=== PATIENT | male | born 1960 | race Caucasian/White ===

== ENCOUNTER 2024-02-18 14:19 | Emergency (ER) | payer OTHER, SELFPAY ==
[2024-02-18 14:27] VITALS: BP 140/88
[2024-02-18 14:51] LABS: % Basophils 0.9 % (0-2); % Eosinophils 3.9 % (0-6); % Immature Granulocytes 0.3 % (0-0.5); % Lymphocytes 29.1 % (20.5-51.1); % Monocytes 8.5 % (1.7-9.3); % Neutrophils 57.3 % (42.2-75.2); Absolute Basophils 0.1 10^3/uL (0-0.2); Absolute Eosinophils 0.3 10^3/uL (0-0.7); Absolute Lymphocytes 1.9 10^3/uL (1.2-3.4); Absolute Monocytes 0.6 10^3/uL (0.1-0.6); Absolute Neutrophils 3.7 10^3/uL (1.4-6.5); Hemoglobin 15.7 g/dL (13.0-18.0); Mean Corp Hgb Conc. 34.1 g/dL (33.0-37.0); Mean Corpuscular Hgb 32.2 pg (27.0-31.0); Mean Corpuscular Volume 94.3 fL (80.0-94.0); Mean Platelet Volume 10.1 fL (7.4-10.4); Nucleated Red Blood Cells % 0 % (-); Platelet Count 190 10^3/uL (130-400); Red Blood Cell Count 4.88 10^6/uL (4.70-6.10); Red Cell Dist. Width 14.2 % (11.5-14.5); White Blood Cell Count 6.5 10^3/uL (4.8-10.8)
[2024-02-18 15:05] LABS: ALT (SGPT) 37 U/L (0-50); AST (SGOT) 35 U/L (17-59); Alkaline Phosphatase 98 U/L (38-126); Blood Urea Nitrogen 13 mg/dl (9-20); Carbon Dioxide 29 mmol/L (22-30); Chloride 102 mmol/L (98-107); Glucose 110 mg/dl (70-99); Potassium 4.8 mmol/L (3.5-5.1); Sodium 139 mmol/L (135-145); Total Bilirubin 0.6 mg/dl (0.2-1.3); Total Protein 8.1 g/dl (6.3-8.2); eGFR 56.83
[2024-02-18 16:55] VITALS: BP 161/77
[2024-02-18 16:56] VITALS: BP 160/84; BP 161/77; BP 169/84; PULSE 71; PULSE 74; PULSE 80
[2024-02-18 16:57] VITALS: BP 160/84
[2024-02-18 17:00] VITALS: BP 169/84
--- NOTE | 2024-02-18 17:00 | ED.GENMED ---
History of Present Illness
General
Chief Complaint: Chest Pain
Source: patient and spouse
Time Seen by Provider: 02/18/24 16:47
Travel History
Have you had any contact with someone who has COVID-19?: No
Do you have any symptoms of coronavirus? Fever > 100 degrees, chills, cough, shortness of breath, sore throat, loss of taste or smell, muscle aches, or headache?: No
History of Present Illness
History of Present Illness:
63-year-old male with past medical history of hypertension, hyperlipidemia, CAD with cardiac stent placed in 2010 presenting to the emergency department for evaluation of acute onset of vertigo that started while watching TV, patient got diaphoretic
and shortly after developed some chest discomfort. He reports that the chest discomfort fully resolved but he still has been having intermittent episodes of vertigo. At time of my exam patient notes that he is fully asymptomatic and without any
other concerns. Denies any headache, visual disturbances, focal weakness or numbness, current chest or shortness of breath, palpitations, diaphoresis, exertional dyspnea orthopnea. Patient notes 2 weeks ago he did have an acute GI illness with
nausea vomiting and diarrhea which all resolved. No known sick contacts, recent travel or recent antibiotics. Patient reports he is readily compliant with his aspirin regimen.
Past History
Past History
ED Past Medical History: CAD and HTN; Negative IDDM or NIDDM
ED Past Surgical History: None
Social History
Tobacco: Non-smoker
Alcohol: Occasional
Drug: None
Personal:
Living: with family
Employment: Employed
Family History
Family History: CAD
Review of Systems
Review of Systems
All Other Systems: ROS reviewed and negative except as documented in HPI and ROS
Phy Exam
Physical Exam
Physical Exam:
GENERAL: Alert , in no apparent distress
EYE: conjunctiva clear
NECK: Supple, no significant adenopathy.
ENT: o/p clr, mmm. TMs normal bilateral
CARDIAC: Regular rate and rhythm, no murmur
LUNGS: Clear breath sounds bilaterally, no acute respiratory distress, no wheezes/rales/rhonchi
NEUROLOGICAL: Alert and oriented x 3, ambulates with gait
SKIN: Warm and dry, skin intact.
MUSCULOSKELETAL: well perfused.
PSYCH: Normal and appropriate interaction.
Scores
Heart Failure Risk
Heart Failure Risk Score: Not Applicable
Heart Score for Chest Pain Patients
STEMI patient?: No
History: Slightly or Non-Suspicious
ECG: Normal
Age: >45 - <65 years
Risk Factors: >/= 3 Risk Factors or History of CAD
Troponin: </= Normal Limit
Heart Score for Chest Pain Patients: 3
Heart Score Risk: 2.5% MACE over next 6 weeks
Withdrawal Assessment of Alcohol
Withdrawal Assessment Completed?: Not applicable
Course
Orders/Labs/Results
Orders:
Orders
02/18/24 14:22
ECG [Electrocardiogram (*1)] Urgent
Reason for Study: Chest Pain
EKG- Treatment ONCE
02/18/24 14:40
Complete Blood Count/With Diff Urgent
Comprehensive Metabolic Panel Urgent
02/18/24 16:56
Electrocardiogram (*1) Urgent
Reason for Study: Chest Pain
EKG- Treatment ONCE
Orthostatic VS- Treatment ONCE
02/18/24 16:59
0.9% Sodium Chloride 1000 ml [Nss] 1,000 ml IV BOLUS
02/18/24 18:44
Troponin I Urgent
Troponin I Urgent
Abnormal Lab Results
02/18/24
14:40
MCV 94.3 H fL
(80.0-94.0)
MCH 32.2 H pg
(27.0-31.0)
Creatinine 1.4 H mg/dL
(0.7-1.3)
Glucose 110 H mg/dl
(70-99)
02/18/24 14:40
02/18/24 14:40
Vital Signs
Initial and Last Documented VS:
Initial Vital Signs
Temp Pulse Resp BP Pulse Ox
98.6 F 71 18 140/88 98
02/18/24 14:27 02/18/24 14:27 02/18/24 14:27 02/18/24 14:27 02/18/24 14:27
Last Documented Vital Signs
Temp Pulse Resp BP Pulse Ox
98.6 F 78 14 169/84 95
02/18/24 14:27 02/18/24 19:15 02/18/24 19:15 02/18/24 17:00 02/18/24 19:15
MDM/Problems Addressed
Differential Diagnosis Includes:
BPPV, labyrinthitis, electrolyte disturbance, less concern for ACS
MDM/Problems Addressed:
63-year-old male presenting to the emergency department for evaluation of acute onset of vertiginous symptoms. Patient also had some chest pain with this however this is fully resolved and was fleeting in nature. I suspect labyrinthitis to be most
likely given recent viral illness. Patient's labs including troponin are largely unremarkable although he does have a noted mild WILMER. Will treat with 1 L of IV fluids. Will check orthostatics and repeat troponin as well as EKG. If this remains
unremarkable will ensure close follow-up with cardiology. Antivert prescription to be provided. Anticipate discharge home.
Chronic conditions affecting care: CAD
*Pulse Oximetry
Patient hypoxic: no
*EKG
Interpreted by ED Provider?: Yes
Comparison EKG: no changes
Heart Rate: 73
Rate: normal
Rhythm: sinus
[place]: normal axis
Ischemia: no ischemia
*Critical Care Note
Total Time (30-74mins, 75-104mins- exclusive of procedures): Not Applicable
Patient Management
Escalation/DeEscalation of care consider admission/obs:
Patient remains symptom-free in ER without any interventions. He had a repeat troponin which was negative. Again I do not have suspicion for ACS presentation and suspect this to be more likely a labyrinthitis caused by recent viral illness.
Prescription for vertigo sent to pharmacy. I did notify the chest pain hotline given patient's known history of coronary artery disease. Aware of return precautions but otherwise stable for discharge home.
ED Attending Note
-
Portions of this chart may have been created with voice recognition software.� Occasional wrong word or��sound alike� substitutions may have occurred due to the inherent limitations of voice recognition software.
Discharge Plan
Departure
Patient Disposition: Home (Routine Discharge)
Date of Disposition: 02/18/24
Time of Disposition: 19:20
Patient with high blood pressure during this ER visit?: Yes
Discharge Problem:
Vertigo, Chest pain
Instructions: Vertigo (a Type of Dizziness) (DC), Chest Pain DCA Follow Up
Prescriptions:
New
meclizine [Antivert] 50 mg tablet
50 mg PO BID PRN (Reason: dizziness) Qty: 10 0RF
No Action
multivitamin [Daily Multiple] 1 EACH tablet
1 ea PO DAILY
nitroglycerin 0.4 MG tablet, sublingual
0.4 mg sublingual [id number] PRN (Reason: chest pain)
omeprazole 20 MG capsule,delayed release(DR/EC)
20 mg PO DAILY
finasteride [Propecia] 1 MG tablet
1 mg PO DAILY
coenzyme Q10 [Co Q-10] 100 MG capsule
100 mg PO DAILY
rosuvastatin 20 MG tablet
1 tab PO DAILY
Patient Comments:
Pt states he was taking this at night but changed to AM w/ no change in cholesteral labs (noted 3..13)
nebivolol [Bystolic] 5 MG tablet
5 mg PO DAILY
prasugrel 10 MG tablet
10 mg PO Daily
Diovan
80 mg PO DAILY
Referrals:
UNKNOWN - PT DOES,NOT KNOW [Unknown Provider] -
Interventions
Interventions:
*Risk Screen - Suicide Last Done: 02/18/24 14:27
*General Assessment Last Done: 02/18/24 14:27
*Neglect/Abuse Screening Last Done: 02/18/24 14:27
ED- Fall Risk Assessment Last Done: 02/18/24 17:30
*ED COVID-19 Vaccine History Last Done: 02/18/24 14:27
*Nursing Disposition Last Done: 02/18/24 19:44
ED- Cardiac Assessment Last Done: 02/18/24 17:30
Discharge Date and Time
Discharge Date/Time: 02/18/24 19:45
Print Language: GREENLANDIC
[2024-02-18] MEDS: NSS 1000 IV (17:24)
[2024-02-18 19:19] LABS: Troponin I < 0.012 ng/ml
== END 2024-02-18 19:45 | disposition home or self-care (01) ==
LOC: EMR 14:19
PROVIDERS: Emergency Medicine; EMERGENCY PHYSICIAN Emergency Medicine; FAMILY PHYSICIAN Internal Medicine
DX: R07.89 Other chest pain (principal); R42 Dizziness and giddiness; R61 Generalized hyperhidrosis; I25.10 Atherosclerotic heart disease of native coronary artery without angina pectoris; N17.9 Acute kidney failure, unspecified; I10 Essential (primary) hypertension; Z95.5 Presence of coronary angioplasty implant and graft; Z79.82 Long term (current) use of aspirin
CPT/HCPCS: 99284; 96360; 80053; 84484; 85025; 93005

== ENCOUNTER 2024-04-21 06:59 | Emergency (ER) | payer OTHER, SELFPAY ==
[2024-04-21 07:05] VITALS: BP 164/89
--- NOTE | 2024-04-21 07:17 | ED.GENMED ---
History of Present Illness
General
Chief Complaint: Urinary Symptoms
Source: patient
Exam Limitations: none
Time Seen by Provider: 04/21/24 07:16
Nursing documentation reviewed up to this point in time: agreed with
Travel History
Have you had any contact with someone who has COVID-19?: No
Do you have any symptoms of coronavirus? Fever > 100 degrees, chills, cough, shortness of breath, sore throat, loss of taste or smell, muscle aches, or headache?: No
History of Present Illness
History of Present Illness:
63-year-old male with history of CAD, HTN, HLD, cardiac stents presents stating 4 days ago he had itching of his penis, yesterday noted a drop of blood from tip of penis, today 'there was more blood.' Denies fever/chills, denies abdominal pain.
Denies burning, frequency or urgency to urinate. No further itching.
Past History
Past History
ED Past Medical History: CAD and HTN; Negative IDDM or NIDDM
ED Past Surgical History: None
Social History
Tobacco: Non-smoker
Alcohol: Occasional
Drug: None
Personal:
Living: with family
Employment: Employed
Family History
Family History: CAD
Review of Systems
Review of Systems
Allergies reviewed?: Yes
All Other Systems: ROS reviewed and negative except as documented in HPI and ROS
Constitutional: Denies fever or chills
ABD/GI: Denies abdominal pain or nausea
: Reports bleeding; Denies dysuria, frequency, flank pain, difficulty voiding or urgency
Skin: Reports rash (candidal rash in groins, few spots on penile shaft)
Phy Exam
Physical Exam
Physical Exam:
GENERAL: No acute distress. A&Ox3.
CONSTITUTIONAL: Afebrile.
RESPIRATORY: Regular respirations, nonlabored, lungs clear.
CARDIOVASCULAR: Regular rate and rhythm, no murmurs, no rubs.
GI: Soft, nontender, normal BS
MUSCULOSKELETAL: Moves with ease. Well perfused.
SKIN: Warm, dry, pink
PSYCH: Normal mood and affect. Well kept, interactive and appropriate
NEUROLOGIC: Awake, alert and oriented. No focal neurological deficits
Course
Orders/Labs/Results
Orders:
Orders
04/21/24 07:26
Complete Blood Count/With Diff Urgent
Comprehensive Metabolic Panel Urgent
Urinalysis Reflex To Culture Urgent
Date Specimen was Collected: 04/21/24
Time Specimen was Collected: 07:12
Urine Microscopic Reflex Cult Urgent
Chlamydia/GC by PCR Urgent
GLADIS Source: U
Specimen Description:
Source:: URINE
Date Specimen was Collected: 04/21/24
Time Specimen was Collected: 07:12
04/21/24 07:28
Fluconazole [Diflucan] 200 mg PO NOW STA
04/21/24 07:29
Add On- LAB Urgent
Tests Added?: urine GC and chlamydia
04/21/24 08:54
CT Abd/pel Without Iv Or Oral Urgent
Comment:
Reason For Exam: hematuria
Abnormal Lab Results
04/21/24
07:26
MCV 96.9 H fL
(80.0-94.0)
MCH 32.3 H pg
(27.0-31.0)
RDW 14.8 H %
(11.5-14.5)
Glucose 127 H mg/dl
(70-99)
Urine Ketones Trace A
(Negative)
Ur Occult Blood Reflex 4+ A
(Negative)
Leukocyte Esterase Rfl Trace A
(Negative)
Urine RBC 40-50 A /HPF
(0-2)
Urine Bacteria (Reflex) Few A
(Negative)
Urine Glucose Trace A
(Negative)
04/21/24 07:26
04/21/24 07:26
Vital Signs
Initial and Last Documented VS:
Initial Vital Signs
Temp Pulse Resp BP Pulse Ox
98.2 F 80 16 164/89 98
04/21/24 07:05 04/21/24 07:05 04/21/24 07:05 04/21/24 07:05 04/21/24 07:05
Last Documented Vital Signs
Temp Pulse Resp BP Pulse Ox
98.2 F 80 19 147/78 98
04/21/24 07:05 04/21/24 10:23 04/21/24 10:23 04/21/24 10:23 04/21/24 10:23
MDM/Problems Addressed
Differential Diagnosis Includes:
UTI, hemorrhagic cystitis, STI
Candidal/fungal rash of groin area and penis
MDM/Problems Addressed:
63-year-old male with history of CAD, HTN, HLD, cardiac stents presents stating 4 days ago he had itching of his penis, yesterday noted a drop of blood from tip of penis, today 'there was more blood.' Denies fever/chills, denies abdominal pain.
Denies burning, frequency or urgency to urinate. No further itching.
Afebrile, NAD
On exam, bilateral groin intertrigonal rash noted with few similar spots on penile shaft and head. No discharge noted.
8:50 AM
CBC normal
CMP normal
9:45 AM
UA: No sign of infection, 4+ RBCs, 40-50/HPF RBCs
CAT scan abdomen pelvis radiology report reviewed: IMPRESSION:
1. Mild diffuse thickening and trabeculation of the wall of the urinary bladder. Diagnostic possibilities are (1) cystitis or (2) chronic urinary bladder outlet obstruction.
2. Mild chronic bilateral renal disease.
3. Moderate diverticulosis in the sigmoid colon.
4. Cholelithiasis.
5. Previous gastric sleeve surgery.
6. Severe discogenic degenerative disease at L5/S1.
7. Grade 2 anterolisthesis of L5 on S1 secondary to bilateral L5 pars interarticularis spondylolysis.
Patient given Diflucan for the candidal rash in his groin, his U/A shows no infection, but with the hematuria and the CT showing cystitis I will treat as an uncomplicated urinary tract infection and put him on Keflex 500 mg twice daily for 7 days as
he has no systemic symptoms.
Referred to Urology
*Critical Care Note
Total Time (30-74mins, 75-104mins- exclusive of procedures): Not Applicable
ED Attending Note
-
Portions of this chart may have been created with voice recognition software.� Occasional wrong word or��sound alike� substitutions may have occurred due to the inherent limitations of voice recognition software.
Discharge Plan
Departure
Patient Disposition: Home (Routine Discharge)
Date of Disposition: 04/21/24
Time of Disposition: 09:53
Patient with high blood pressure during this ER visit?: No
Condition: Good
Discharge Problem:
Hematuria, Acute cystitis with hematuria
Instructions: Blood in the Urine (Hematuria), Adult (DC)
Prescriptions:
New
cephalexin 500 mg capsule
500 mg PO BID 7 Days Qty: 14 0RF
No Action
multivitamin [Daily Multiple] 1 EACH tablet
1 ea PO DAILY
nitroglycerin 0.4 MG tablet, sublingual
0.4 mg sublingual [id number] PRN (Reason: chest pain)
omeprazole 20 MG capsule,delayed release(DR/EC)
20 mg PO DAILY
finasteride [Propecia] 1 MG tablet
1 mg PO DAILY
coenzyme Q10 [Co Q-10] 100 MG capsule
100 mg PO DAILY
rosuvastatin 20 MG tablet
1 tab PO DAILY
Patient Comments:
Pt states he was taking this at night but changed to AM w/ no change in cholesteral labs (noted 3.25.13)
nebivolol [Bystolic] 5 MG tablet
5 mg PO DAILY
prasugrel 10 MG tablet
10 mg PO Daily
Diovan
80 mg PO DAILY
meclizine [Antivert] 50 mg tablet
50 mg PO BID PRN (Reason: dizziness) Qty: 10 0RF
Referrals:
Gaudencio Austin I., DO [Family Provider] -
Román Morley MD [Active] - Call in 1-3 days for appt
Activity Restrictions/Additional Instructions:
As we discussed, your CT shows you have cystitis, irritation of the bladder causing the blood in your urine.
Call the Urologist on Tuesday and make next available appointment.
I sent a prescription to your pharmacy for an antibiotic Keflex 500 mg to take twice a day for 7 days.
You also happen to have a yeast infection (the rash in the groin area) for which you were give one dose of Diflucan.
Over the counter topical anti fungal cream to affected areas as directed on the label. (such as Clotrimazole or Miconazole)
Interventions
Interventions:
*Risk Screen - Suicide Last Done: 04/21/24 07:47
*General Assessment Last Done: 04/21/24 07:47
*Neglect/Abuse Screening Last Done: 04/21/24 07:47
ED- Fall Risk Assessment Last Done: 04/21/24 07:47
*ED COVID-19 Vaccine History Last Done: 04/21/24 07:05
*Nursing Disposition Last Done: 04/21/24 10:24
ED-Male Genitourinary Assessment Last Done: 04/21/24 07:47
Discharge Date and Time
Discharge Date/Time: 04/21/24 10:23
Print Language: SPANISH
[2024-04-21 07:39] LABS: % Basophils 1.1 % (0-2); % Eosinophils 3.9 % (0-6); % Immature Granulocytes 0.4 % (0-0.5); % Neutrophils 58.6 % (42.2-75.2); Absolute Basophils 0.1 10^3/uL (0-0.2); Absolute Eosinophils 0.2 10^3/uL (0-0.7); Absolute Lymphocytes 1.6 10^3/uL (1.2-3.4); Absolute Monocytes 0.5 10^3/uL (0.1-0.6); Absolute Neutrophils 3.3 10^3/uL (1.4-6.5); Hematocrit 46.5 % (39.0-52.0); Hemoglobin 15.5 g/dL (13.0-18.0); Mean Corp Hgb Conc. 33.3 g/dL (33.0-37.0); Mean Corpuscular Hgb 32.3 pg (27.0-31.0); Mean Corpuscular Volume 96.9 fL (80.0-94.0); Mean Platelet Volume 10.1 fL (7.4-10.4); Nucleated Red Blood Cells % 0 % (-); Platelet Count 164 10^3/uL (130-400); Red Cell Dist. Width 14.8 % (11.5-14.5); White Blood Cell Count 5.6 10^3/uL (4.8-10.8)
[2024-04-21 07:46] LABS: ALT (SGPT) 30 U/L (0-50); AST (SGOT) 31 U/L (17-59); Albumin 4.6 g/dl (3.5-5.0); Alkaline Phosphatase 82 U/L (38-126); Blood Urea Nitrogen 14 mg/dl (9-20); Calcium 9.4 mg/dl (8.4-10.2); Carbon Dioxide 27 mmol/L (22-30); Chloride 105 mmol/L (98-107); Glucose 127 mg/dl (70-99); Sodium 143 mmol/L (135-145); Total Bilirubin 0.5 mg/dl (0.2-1.3); Total Protein 7.5 g/dl (6.3-8.2); eGFR > 60.00
[2024-04-21 07:47] VITALS: BMI 39.9
[2024-04-21 08:30] LABS: Urine Albumin Negative (Neg - Trace); Urine Bilirubin Negative (Negative); Urine Character Clear (Clear); Urine Color Yellow; Urine Glucose Trace (Negative); Urine Ketone Trace (Negative); Urine Leukocyte Trace (Negative); Urine Nitrite Negative (Negative); Urine Occult Blood 4+ (Negative); Urine Specific Gravity 1.025 (<1.030); Urine Urobilinogen Negative (Neg - 1+)
[2024-04-21 09:22] LABS: Urine Bacteria Few (Negative); Urine Red Blood Cell 40-50 /HPF (0-2); Urine White Cell 0-2 /HPF (0-5)
[2024-04-21] MEDS: DIFLUCAN 200 MG PO (09:34)
[2024-04-21 10:23] VITALS: BP 147/78
== END 2024-04-21 10:23 | disposition home or self-care (01) ==
LOC: EMR 06:59
PROVIDERS: EMERGENCY PHYSICIAN Emergency Medicine; FAMILY PHYSICIAN Internal Medicine
DX: N30.01 Acute cystitis with hematuria (principal); I25.10 Atherosclerotic heart disease of native coronary artery without angina pectoris; I10 Essential (primary) hypertension; Z98.84 Bariatric surgery status; Z82.49 Family history of ischemic heart disease and other diseases of the circulatory system
CPT/HCPCS: 99284; 74176; 80053; 81003; 81015; 85025; 87491; 87591

== ENCOUNTER 2024-07-16 14:39 | Emergency (ER) | payer OTHER, SELFPAY ==
[2024-07-16 14:51] VITALS: BP 180/90
[2024-07-16 15:15] LABS: % Basophils 0.9 % (0-2); % Eosinophils 2.1 % (0-6); % Immature Granulocytes 0.2 % (0-0.5); % Lymphocytes 23.1 % (20.5-51.1); % Monocytes 6.9 % (1.7-9.3); % Neutrophils 66.8 % (42.2-75.2); Absolute Basophils 0.1 10^3/uL (0-0.2); Absolute Eosinophils 0.1 10^3/uL (0-0.7); Absolute Lymphocytes 1.5 10^3/uL (1.2-3.4); Absolute Monocytes 0.5 10^3/uL (0.1-0.6); Absolute Neutrophils 4.5 10^3/uL (1.4-6.5); Hematocrit 43.9 % (39.0-52.0); Hemoglobin 15.3 g/dL (13.0-18.0); Mean Corp Hgb Conc. 34.9 g/dL (33.0-37.0); Mean Corpuscular Volume 94.8 fL (80.0-94.0); Mean Platelet Volume 9.9 fL (7.4-10.4); Nucleated Red Blood Cells % 0 % (-); Platelet Count 161 10^3/uL (130-400); Red Blood Cell Count 4.63 10^6/uL (4.70-6.10); Red Cell Dist. Width 14.2 % (11.5-14.5); White Blood Cell Count 6.7 10^3/uL (4.8-10.8)
[2024-07-16 15:33] LABS: ALT (SGPT) 39 U/L (0-50); AST (SGOT) 38 U/L (17-59); Albumin 4.6 g/dl (3.5-5.0); Alkaline Phosphatase 83 U/L (38-126); Blood Urea Nitrogen 14 mg/dl (9-20); Calcium 9.8 mg/dl (8.4-10.2); Carbon Dioxide 29 mmol/L (22-30); Chloride 102 mmol/L (98-107); Glucose 161 mg/dl (70-99); Potassium 4.7 mmol/L (3.5-5.1); Sodium 143 mmol/L (135-145); Total Bilirubin 0.9 mg/dl (0.2-1.3); Total Protein 7.3 g/dl (6.3-8.2); eGFR > 60.00
[2024-07-16 16:05] VITALS: BP 155/86
[2024-07-16 16:43] VITALS: BMI 38.2
[2024-07-16 17:00] VITALS: BP 150/90
--- NOTE | 2024-07-16 18:14 | ED.GENMED ---
History of Present Illness
General
Chief Complaint: Blood Pressure Problem
Source: patient and spouse
Time Seen by Provider: 07/16/24 16:16
History of Present Illness
History of Present Illness:
63-year-old male who presents for evaluation. The patient states that yesterday while driving he was feeling well and suddenly felt sweaty, nauseous and had palpitations. He states last about 30 minutes. He went to urgent care who advised him
then to go to [facility]. He had extensive workup including 2 troponins, labs and EKG that were grossly and the patient was discharged. The patient states he had otherwise been feeling fine. It was noted that he was hypertensive. His
blood pressure had come down before he was left. He states at home he had been doing fine with today was at the computer and for a brief second felt 'foggy'. He states that had resolved as well. Currently feels at his normal state of health and
feels well. Does have a history of coronary artery disease. He denies chest pain or shortness of breath. No back pain. No abdominal pain. No fevers. No new medications. No recent travel. No leg pain. No swelling.
Past History
Past History
ED Past Medical History: CAD and HTN
ED Past Surgical History: Other (Bariatric surgery)
Social History
Tobacco: Non-smoker
Alcohol: Occasional
Drug: None
Personal:
Living: with family
Employment: Employed
Family History
Family History: CAD
Phy Exam
Physical Exam
Physical Exam:
CONSTITUTIONAL Patient alert and oriented to person, place and time. Well-appearing. Vital signs reviewed.
HEAD atraumatic, normocephalic.
EYES eyelids normal to inspection, Pupils equally round and reactive to light, Extraocular muscles intact, Conjunctiva normal, Sclera normal.
NECK normal range of motion, Trachea midline, no jugular venous distention.
RESPIRATORY CHEST No respiratory distress noted, Chest expansion equal, Bilateral breath sounds clear.
CARDIOVASCULAR regular rate and rhythm, Heart sounds normal.
BACK normal inspection, no obvious deformities
UPPER EXTREMITY range of motion normal, Motor strength normal, no cyanosis, no edema.
LOWER EXTREMITY range of motion normal, Motor strength normal, no cyanosis, no edema.
NEURO Speech normal, No focal motor deficits, [place] coma scale 15, Memory normal, Cranial Nerves intact to screening exam.
SKIN skin warm, dry, and normal in color.
PSYCHIATRIC patient oriented to person place and time, Normal affect.
Course
Orders/Labs/Results
Orders:
Orders
07/16/24 14:54
ECG [Electrocardiogram (*1)] Urgent
Reason for Study: Vertigo / Dizzy
EKG- Treatment ONCE
07/16/24 15:06
Complete Blood Count/With Diff Urgent
Comprehensive Metabolic Panel Urgent
Abnormal Lab Results
07/16/24
15:06
RBC 4.63 L 10^6/uL
(4.70-6.10)
MCV 94.8 H fL
(80.0-94.0)
MCH 33.0 H pg
(27.0-31.0)
Glucose 161 H mg/dl
(70-99)
07/16/24 15:06
07/16/24 15:06
Vital Signs
Initial and Last Documented VS:
Initial Vital Signs
Temp Pulse Resp BP Pulse Ox
98.1 F 76 18 180/90 98
07/16/24 14:51 07/16/24 14:51 07/16/24 14:51 07/16/24 14:51 07/16/24 14:51
Last Documented Vital Signs
Temp Pulse Resp BP Pulse Ox
98.1 F 66 15 150/90 96
07/16/24 14:51 07/16/24 17:45 07/16/24 17:45 07/16/24 17:00 07/16/24 17:45
MDM/Problems Addressed
MDM/Problems Addressed:
Uncontrolled hypertension
*Pulse Oximetry
Patient hypoxic: no
*EKG
Interpreted by ED Provider?: Yes
Rate: normal
Rhythm: sinus
[place]: normal axis
QRS Pattern: normal QRS
Ischemia: no ischemia
*[employer] Interpretation
Rate: normal
Interpretation: normal
Rhythm: sinus
*Critical Care Note
Total Time (30-74mins, 75-104mins- exclusive of procedures): Not Applicable
Data Reviewed
Review of Other/Old Records Reveals: Other ([employer] report reviewed from January 2013)
Source: patient and spouse
Further Testing Considered But Not Given:
Consider head CT but no evidence of CVA or TIA
Patient Management
Escalation/DeEscalation of care consider admission/obs:
Patient is well-appearing. A little bit hypertensive but his exam and workup are normal. Will further PCP and Dr. Dockery for outpatient follow-up.
ED Attending Note
-
Portions of this chart may have been created with voice recognition software.� Occasional wrong word or��sound alike� substitutions may have occurred due to the inherent limitations of voice recognition software.
Discharge Plan
Departure
Patient Disposition: Home (Routine Discharge)
Date of Disposition: 07/16/24
Time of Disposition: 18:19
Patient with high blood pressure during this ER visit?: Yes
Discharge Problem:
Uncontrolled hypertension
Instructions: High Blood Pressure (DC), BLOOD PRESSURE
Prescriptions:
No Action
multivitamin [Daily Multiple] 1 EACH tablet
1 ea PO DAILY
nitroglycerin 0.4 MG tablet, sublingual
0.4 mg sublingual [id number] PRN (Reason: chest pain)
omeprazole 20 MG capsule,delayed release(DR/EC)
20 mg PO DAILY
finasteride [Propecia] 1 MG tablet
1 mg PO DAILY
coenzyme Q10 [Co Q-10] 100 MG capsule
100 mg PO DAILY
rosuvastatin 20 MG tablet
1 tab PO DAILY
Patient Comments:
Pt states he was taking this at night but changed to AM w/ no change in cholesteral labs (noted 3..)
nebivolol [Bystolic] 5 MG tablet
5 mg PO DAILY
prasugrel 10 MG tablet
10 mg PO Daily
Diovan
80 mg PO DAILY
meclizine [Antivert] 50 mg tablet
50 mg PO BID PRN (Reason: dizziness) Qty: 10 0RF
cephalexin 500 mg capsule
500 mg PO BID 7 Days Qty: 14 0RF
Referrals:
Gaudencio Austin I., DO [Family Provider] -
Activity Restrictions/Additional Instructions:
Please see your doctor or Dr. ROHINI Dockery in the next 48 hours for follow-up and reevaluation. Return immediately for worsening symptoms, chest pain, shortness of breath, palpitations, weakness of any kind or any other concerns.
Interventions
Interventions:
*Risk Screen - Suicide Last Done: 07/16/24 16:43
*General Assessment Last Done: 07/16/24 16:43
*Neglect/Abuse Screening Last Done: 07/16/24 16:43
ED- Fall Risk Assessment Last Done: 07/16/24 16:43
*ED COVID-19 Vaccine History Last Done: 07/16/24 16:43
ED- Cardiac Assessment Last Done: 07/16/24 16:43
ED- Neurological Assessment Last Done: 07/16/24 16:43
ED- Pulmonary Assessment Last Done: 07/16/24 16:43
Discharge Date and Time
Print Language: DJIBOUTIAN
== END 2024-07-16 18:32 | disposition home or self-care (01) ==
LOC: EMR 14:39
PROVIDERS: EMERGENCY PHYSICIAN Emergency Medicine; FAMILY PHYSICIAN Internal Medicine
DX: I10 Essential (primary) hypertension (principal); I25.10 Atherosclerotic heart disease of native coronary artery without angina pectoris
CPT/HCPCS: 99284; 80053; 85025; 93005

== ENCOUNTER → 2024-08-27 06:27 | Day surgery (SDC) | payer OTHER, SELFPAY | LOC: GI 06:27 | PROVIDERS: ATTENDING PHYSICIAN Internal Medicine Gastroenterology | DX: Z12.11 Encounter for screening for malignant neoplasm of colon (principal); K64.8 Other hemorrhoids; K57.30 Diverticulosis of large intestine without perforation or abscess without bleeding | CPT/HCPCS: G0121 ==

== ENCOUNTER 2025-04-27 02:28 | Emergency (ER) | payer OTHER, SELFPAY ==
[2025-04-27 02:30] VITALS: BP 148/92
[2025-04-27 02:53] VITALS: BP 139/86; BMI 31.6
--- NOTE | 2025-04-27 03:19 | ED.GENMED ---
History of Present Illness
General
Chief Complaint: Head Injury
Source: patient
Exam Limitations: none
Time Seen by Provider: 04/27/25 02:32
Nursing documentation reviewed up to this point in time: agreed with
History of Present Illness
History of Present Illness:
Patient presents to ED secondary to head injury, which occurred when he fell down walking down the steps in his basement. Patient reports losing balance with his last 2 steps, and initially hitting the wall and falling onto the last step. Denies
loss of consciousness. Denies nausea or vomiting. Denies dizziness. Denies blurred vision. In addition, patient does admit to having had intermittent headache over the past 6 months, partially relieved with Tylenol. Tonight, however, patient
does admit to having had increased alcohol intake. After the fall, patient was attended to immediately by his family ember, where he was found to be awake and alert, but initially cloudy, which now has resolved completely. Patient does not take
any blood thinning medications.
Past History
Past History
ED Past Medical History: CAD and HTN
ED Past Surgical History: Other (Bariatric surgery)
Social History
Tobacco: Non-smoker
Alcohol: Occasional
Drug: None
Personal:
Living: with family
Employment: Employed
Family History
Family History: CAD
Review of Systems
Review of Systems
Allergies reviewed?: Yes
Constitutional: Reports no symptoms
Respiratory: Denies trouble breathing
Cardiac: Denies chest pain, palpitations or syncope
ABD/GI: Reports no symptoms; Denies nausea or vomiting
Musculoskeletal: Reports no symptoms
Skin: Reports no symptoms
Neurological: Reports headache
Phy Exam
Physical Exam
Physical Exam:
Physical Exam
General: no apparent distress, not acutely ill. afebrile
Head: erythema noted over left temporal area without tenderness.
Neck: supple. no meningeal signs.
Heart: s1/s2 regular rate and rhythm
Lungs: no acute respiratory distress. clear bilaterally
Abdomen: normal bowel sounds. not tender.
Neuro: alert and oriented x 3. no focal neurological deficits. normal speech
Skin: no rash
Psychiatric: well kept. interactive and cooperative
Extremities: no edema. no calf tenderness.
Course
Orders/Labs/Results
Orders:
Orders
04/27/25 03:14
CT Head W/o Iv Contrast Urgent
Comment:
Reason For Exam: trauma to left side of head
Vital Signs
Initial and Last Documented VS:
Initial Vital Signs
Temp Pulse Resp BP Pulse Ox
97.7 F 81 16 148/92 96
04/27/25 02:30 04/27/25 02:30 04/27/25 02:30 04/27/25 02:30 04/27/25 02:30
Last Documented Vital Signs
Temp Pulse Resp BP Pulse Ox
97.7 F 72 16 135/69 98
04/27/25 02:30 04/27/25 04:20 04/27/25 04:20 04/27/25 04:20 04/27/25 04:20
MDM/Problems Addressed
MDM/Problems Addressed:
CT head report reviewed and discussed with patient and family. Patient otherwise remains afebrile, hemodynamically stable, and neurologically intact during observation. Today's presentation is likely mechanical fall, along with increased alcohol
intake. However, in light of patient's intermittent episodes of headache for an extended period of time, will recommend close follow-up with his primary care physician.
*Pulse Oximetry
Patient hypoxic: no (98%)
*Critical Care Note
Total Time (30-74mins, 75-104mins- exclusive of procedures): Not Applicable
ED Attending Note
-
Portions of this chart may have been created with voice recognition software.� Occasional wrong word or��sound alike� substitutions may have occurred due to the inherent limitations of voice recognition software.
Discharge Plan
Departure
Patient Disposition: Home (Routine Discharge)
Date of Disposition: 04/27/25
Time of Disposition: 04:28
Patient with high blood pressure during this ER visit?: Yes
Discharge Problem:
Head injury
Instructions: Head Injury in Adults (DC)
Prescriptions:
No Action
multivitamin [Daily Multiple] 1 EACH tablet
1 ea PO DAILY
nitroglycerin 0.4 MG tablet, sublingual
0.4 mg sublingual [id number] PRN (Reason: chest pain)
omeprazole 20 MG capsule,delayed release(DR/EC)
20 mg PO DAILY
finasteride [Propecia] 1 MG tablet
1 mg PO DAILY
coenzyme Q10 [Co Q-10] 100 MG capsule
100 mg PO DAILY
rosuvastatin 20 MG tablet
1 tab PO DAILY
Patient Comments:
Pt states he was taking this at night but changed to AM w/ no change in cholesteral labs (noted 3.25.13)
nebivolol [Bystolic] 5 MG tablet
5 mg PO DAILY
prasugrel HCl 10 MG tablet
10 mg PO Daily
Diovan
80 mg PO DAILY
meclizine [Antivert] 50 mg tablet
50 mg PO BID PRN (Reason: dizziness) Qty: 10 0RF
cephalexin 500 mg capsule
500 mg PO BID 7 Days Qty: 14 0RF
Referrals:
Gaudencio Austin I. DO [Family Provider, Internal Medicine]
Activity Restrictions/Additional Instructions:
As discussed, please follow-up with your primary care physician with any further concerns. In ED, CT head did not reveal any abnormal findings.
Interventions
Interventions:
*Risk Screen - Suicide Last Done: 04/27/25 02:30
*General Assessment Last Done: 04/27/25 04:36
*Neglect/Abuse Screening Last Done: 04/27/25 02:30
*ED- Fall Risk Assessment Last Done: 04/27/25 02:30
*ED COVID-19 Vaccine History Last Done: 04/27/25 02:30
*Nursing Disposition Last Done: 04/27/25 04:36
ED- Neurological Assessment Last Done: 04/27/25 03:37
ED-Skin Assessment Last Done: 04/27/25 02:53
Discharge Date and Time
Discharge Date/Time: 04/27/25 04:40
Print Language: SINHALA
[2025-04-27 04:20] VITALS: BP 135/69
== END 2025-04-27 04:40 | disposition home or self-care (01) ==
LOC: EMR 02:28
PROVIDERS: EMERGENCY PHYSICIAN Emergency Medicine; FAMILY PHYSICIAN Internal Medicine
DX: S09.90XA Unspecified injury of head, initial encounter (principal); W10.9XXA Fall (on) (from) unspecified stairs and steps, initial encounter; I25.10 Atherosclerotic heart disease of native coronary artery without angina pectoris; I10 Essential (primary) hypertension
CPT/HCPCS: 99284; 70450